=== PATIENT | female | born 2005 | race Two or more races ===

== ENCOUNTER 2025-03-13 11:32 | Emergency (ER) | payer MEDICAID, OTHER ==
[~2025-03-13] VITALS: Ht 157.5 cm; Wt 53.7 kg
[2025-03-13] MEDS ORDERED: AUG875T PO (12:03)
--- NOTE | 2025-03-13 12:05 | ED.PDOC ---
History of Present Illness HPI Comments 19F presents to the ER w/ no prior MHx associated to the c/c of an animal bite. Pt reports on moving in w/ her cat to her cousin's house who also has a cat, and as both of the cats were fighting, the pt tried to break up the fight and got scratched by her cat on her right UE hand/forearm. This incident happened yesterday. Pt notes on having an 8/10 pain. Social Hx of occasional alcohol use. Chief Complaint: Animal Bite Time Seen by MD: 11:55 Reviewed Notes: Nurses Notes, Medications, Allergies Allergies: Coded Allergies: NO KNOWN ALLERGIES (Unverified , 03/13/25) Home Meds Active Scripts Amoxicillin & Pot Clavulanate (AUGMENTIN TABLET) 875 Mg Tb, 875 MG PO BID for 10 Days, #20 TAB Prov:DIGNA SALGADO MD 03/13/25 Information Source: Patient Mode of Arrival: Ambulatory Severity: Moderate Timing: Hours Duration: Since onset, Hours Prehospital treatment: None Past Medical History PAST MEDICAL HISTORY: Denies Surgical History: Denies all surgeries RISK MANAGEMENT DIRECTOR History: No Pertinent RISK MANAGEMENT DIRECTOR History Family History Family History: Reviewed,noncontributory to illness, Unknown Social History Smoker: Non-Smoker Alcohol: Occasionally Drugs: Denies Drug Use Lives In: Home Constitutional: reports: others (cat scratch/bite); denies: chills, diaphoresis, fatigue, fever, malaise, sweats, weakness EENTM: denies: blurred vision, double vision, ear bleeding, ear discharge, ear drainage, ear pain, ear ringing, eye pain, eye redness, hearing loss, mouth pa in, mouth swelling, nasal discharge, nose bleeding, nose congestion, nose pain, photophobia, tearing, throat pain, throat swelling, voice changes, others Respiratory: denies: cough, hemoptysis, orthopnea, SOB at rest, shortness of breath, SOB with excertion, stridor, wheezing, others Cardiovascular: denies: chest pain, dizzy spells, diaphoresis, Dyspnea on exertion, edema, irregular heart beat, left arm pain, lightheadedness, palpitations, PND, syncope, others Gastrointestinal: denies: abdomen distended, abdominal pain, blood streaked bowels, constipated, diarrhea, dysphagia, difficulty swallowing, hematemesis, melena, nausea, poor appetite, poor fluid intake, rectal bleeding, rectal pain, vomiting, others Genitourinary: denies: abnormal vagina bleeding, burning, dyspareunia, dysuria, flank pain, frequency, hematuria, incontinence, pain, , vagina discharge, urgency, others Neurological: denies: dizziness, fainting, headache, left sided numbness, left sided weakness, numbness, paresthesia, pre-existing deficit, right sided numbness, right sided weakness, seizure, speech problems, tingling, tremors, weakness, others Musculoskeletal: denies: back pain, gout, joint pain, joint swelling, muscle pain, muscle stiffness, neck pain, others Integumetry: denies: bruises, change in color, change in hair/nails, dryness, laceration, lesions, lumps, rash, wounds, others Allergic/Immunocompromised: denies: Difficulty Healing, Frequent Infections, Hives, Itching, others Hematologic/Lymphatic: denies: anemia, blood clots, easy bleeding, easy bruising, swollen glands, others Endocrine: denies: excessive hunger, excessive sweating, excessive thirst, excessive urination, flushing, intolerance to cold, intolerance to heat, unexplained weight gain, unexplained weight loss, others Psychiatric: denies: anxiety, bipolar disorder, depression, hopeless, panic disorder, schizophrenia, sleepless, suicidal, others All Other Systems: Reviewed and Negative Physical Exam General Appearance: No Apparent Distress HEENT: Normal ENT Inspection, Pharynx Normal, TMs Normal Neck: Full Range of Motion, Non-Tender, Normal, Normal Inspection Respiratory: Chest Non-Tender, Lungs Clear, No Accessory Muscle Use, No Respiratory Distress, Normal Breath Sounds Cardiovascular: No Edema, No JVD, No Murmur, No Gallop, Normal Peripheral Pulses, Regular Rate/Rhythm Breast Exam: Deferred Gastrointestinal: No Organomegaly, Non Tender, No Pulsatile Mass, Normal Bowel Sounds, Soft Genitalia: Deferred Pelvic: Deferred Rectal: Deferred Extremities: No calf tenderness, Normal capillary refill, Normal inspection, Normal range of motion, Non-tender, No pedal edema Musculoskeletal : Apperance: Normal Neurologic: Alert, biomedical specialist II-XII nml as Tested, No Motor Deficits, Normal Affect, Normal Mood, No Sensory Deficits Cerebellar Function: Normal Reflexes: Normal Skin: Dry, Normal Color, Rash (Abrasions to the right upper extremity consistent with cat bites), Warm Lymphatic: No Adenopathy Was a procedure done? Was a procedure done?: No Differential Dx Considerations may include: Cat bites, dog bites X-Ray, Labs, Meds, VS Vital Signs Date Time Temp Pulse Resp B/P (MAP) Pulse Ox O2 Delivery O2 Flow Rate FiO2 03/13/25 12:27 68 16 97 Room Air 03/13/25 12:27 98.3 98 16 122/68 (86) 97 98.3 03/13/25 11:34 97.7 124 18 146/71 97 97.7 Current Medications Medications (Trade) Dose Ordered Sig/Sanna Route Start Time Stop Time Status Last Admin Amoxicillin/ Clavulanate Potassium (Augmentin Tablet) 875 mg ONCE ONCE PO 03/13/25 12:15 03/13/25 12:16 DC 03/13/25 12:22 Acetaminophen/ Hydrocodone Bitart ([place] 10/325MG Tab) 1 tab ONCE ONCE PO 03/13/25 12:15 03/13/25 12:16 DC 03/13/25 12:23 Diphtheria/ Tetanus/Acell Pertussis (Boostrix T-Dap) 0.5 ml ONCE ONCE IM 03/13/25 12:15 03/13/25 12:16 DC 03/13/25 12:30 The wound was cleaned with normal saline. The patient is placed in a splint. The patient was given Augmentin 875 mg p.o. The patient was also given [place] here in the emergency department's The patient is given a prescription of tramadol as well as Augmentin The patient will follow up with the primary care doctor The patient will return to the emergency department's condition worsens Time of 1ST Reevaluation: 12:25 Reevaluation 1ST: Unchanged Patient Education/Counseling: Diagnosis, Treatment, Prognosis, Need For Follow Up Family Education/Counseling: No Family Present SEPSIS Sepsis Screen Date sepsis recognized/suspect: Mar 13, 2025 Time Sepsis recognized/suspect: 6 Recent Procedure: No On Antibiotic Therapy: No Respiratory Rate >20: No Heart Rate >90: Yes Temp<36 C (96.8 F) or >38.3 C: No SBP <90 or MAP <65 mmHG: No New Acute Mental Status Change: No Is the patient on CPAP, BIPAP,: No Physician Orders Clean Wound (03/13/25 ) Ortho Supplies (03/13/25 12:01) Splints (03/13/25 12:01) Vital Signs Date Time Temp Pulse Resp B/P (MAP) Pulse Ox O2 Delivery O2 Flow Rate FiO2 03/13/25 12:27 68 16 97 Room Air 03/13/25 12:27 98.3 98 16 122/68 (86) 97 98.3 03/13/25 11:34 97.7 124 18 146/71 97 97.7 Medications Medications Dose Ordered Sig/Sanna Route Start Time Stop Time Status Last Admin Dose Admin Acetaminophen/ Hydrocodone Bitart 1 tab ONCE ONCE PO 03/13/25 12:15 03/13/25 12:16 DC 03/13/25 12:23 Amoxicillin/ Clavulanate Potassium 875 mg ONCE ONCE PO 03/13/25 12:15 03/13/25 12:16 DC 03/13/25 12:22 Diphtheria/ Tetanus/Acell Pertussis 0.5 ml ONCE ONCE IM 03/13/25 12:15 03/13/25 12:16 DC 03/13/25 12:30 Departure 1 Departure Time of Disposition: 12:38 Impression: Primary Impression: Cat bite involving extremity Disposition: 01 HOME / SELF CARE / HOMELESS Condition: Fair e-Prescriptions Amoxicillin & Pot Clavulanate (AUGMENTIN TABLET) 875 Mg Tb 875 MG PO BID for 10 Days, #20 TAB Prov: DIGNA SALGADO MD 03/13/25 Discharged With: Self Critical Care Note Critical Care Time?: No Stability Stability form required: No Heart Score Heart Score: Heart Score Response (Comments) Value History N/A 0 EKG N/A 0 Age N/A 0 Risk Factors N/A 0 Troponin N/A 0 Total 0 I personally scribed for DGINA SALGADO MD ([email or web address]) on 03/13/25 at 12:05. Electronically submitted by Farhan Correa ([email or web address]). DIGNA SALGADO MD Mar 13, 2025 12:05
[2025-03-13] MEDS: AMOXICILLIN/CLAVUL 875 MG TAB PO ONE (12:22)
[2025-03-13] MEDS: HYDROcodone-ACET 10/325MG TAB PO ONE (12:23)
[2025-03-13 12:27] VITALS: BP 122/68; PULSE 68; RESP 16; TEMP 98.3; O2SAT 97
[2025-03-13] MEDS: TETANUS-DIPTH-ACEL PERTUSSIS 0.5ML SYR Tdap IM ONE (12:30)
== END 2025-03-13 13:11 | disposition home or self-care (01) ==
LOC: ER 11:32
DX: S61.452A Open bite of left hand, initial encounter (principal); W55.01XA Bitten by cat, initial encounter; Y93.89 Activity, other specified; Y92.89 Other specified places as the place of occurrence of the external cause; Y99.8 Other external cause status; F10.90 Alcohol use, unspecified, uncomplicated; Z79.899 Other long term (current) drug therapy; Y90.9 Presence of alcohol in blood, level not specified
CPT/HCPCS: 29125; 90471; 90715